=== PATIENT | male | born 1950 | race Caucasian/White ===

== ENCOUNTER 2017-01-30 13:42 | Inpatient (IN) | payer BC ==
[2017-01-30] MEDS ORDERED: Sodium Chloride 0.9% 1000 ML 1,000 ML IV STA (14:34)
[2017-01-30] MEDS ORDERED: Zofran 4 MG/2 ML VIAL IV ONE (14:37)
[2017-01-30] MEDS ORDERED: Zofran 4 MG/2 ML VIAL ONE (14:52)
[2017-01-30] MEDS ORDERED: Sodium Chloride 0.9% 1000 ML 1,000 ML ONE (14:52)
--- NOTE | 2017-01-30 14:52 | XRAY ---
Indication: Weakness and vomiting. Comparison: September 07, 2016. Portable chest again demonstrates normal heart and lungs with right-sided Port-A-Cath and hilar calcified nodes. Bony thorax intact.
[2017-01-30 15:29] LABS: ALBUMIN 2.7 g/dL (3.4-5.0); ALKALINE PHOSPHATASE 64 U/L (46-116); ANION GAP 10.4 MEQ/L (5-15); BILIRUBIN,TOTAL 2.4 mg/dL (0.2-1.0); BLOOD UREA NITROGEN 20 mg/dL (9-20); CHLORIDE 107 mEq/L (98-107); Carbon Dioxide 27.2 mEq/L (21-32); Glucose 126 MG/DL (70-110); Potassium 4.3 mEq/L (3.5-5.1); SGOT/AST 12 U/L (15-37); SGPT/ALT 30 U/L (12-78); SODIUM 140 mEq/L (136-145); Total Protein 4.9 gm/dL (6.4-8.2)
--- NOTE | 2017-01-30 15:39 | ERPHSYRPT ---
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 Triage Nursing Assessment: PT LETHARGIC RESP EASY NON LABORED PT AMBULATED FROM WHEELCHAIR WITH ASSISTANCE X 2 DRY MUCUS MEMBRANES NOTED. Timing/Duration: today Severity: moderate Modifying Factors: Improves With: eating Associated Symptoms: nausea, vomiting, No abdominal pain Allergies/Adverse Reactions: cefepime Allergy (Verified 01/30/17 14:34) morphine Allergy (Verified 01/21/15 08:10) Home Medications: Clonazepam 1 mg PO TIDPRN PRN 06/05/14 [History] Gabapentin [Neurontin] 300 mg PO 12/29/16 [History] Ondansetron HCl [Zofran] 4 mg PO 01/30/17 [History] Solifenacin Succinate [Vesicare] 5 mg PO 01/30/17 [History] Hx Tetanus, Diphtheria Vaccination/Date Given: No Hx Influenza Vaccination/Date Given: No Hx Pneumococcal Vaccination/Date Given: No Immunizations Up to Date: Yes - Review of Systems Constitutional: Weakness Eyes: No Symptoms Ears, Nose, & Throat: No Symptoms Respiratory: No Symptoms Cardiac: No Symptoms Abdominal/Gastrointestinal: Nausea, Vomiting Musculoskeletal: No Symptoms Skin: No Symptoms Psychological: No Symptoms Hematologic/Lymphatic: Other (Non-Hogdgkin's Lymphoma) - Past Medical History Pertinent Past Medical History: Yes Neurological History: No Pertinent History ENT History: No Pertinent History Cardiac History: No Pertinent History Respiratory History: No Pertinent History Endocrine Medical History: No Pertinent History Musculoskeletal History: No Pertinent History GI Medical History: No Pertinent History, Hernia History: No Pertinent History Psycho-Social History: No Pertinent History Male Reproductive Disorders: Other Other Medical History: states enlarged prostate - Past Surgical History Past Surgical History: Yes Neuro Surgical History: No Pertinent History Cardiac: No Pertinent History Respiratory: No Pertinent History Gastrointestinal: Appendectomy, Cholecystectomy, Hernia Repair Genitourinary: No Pertinent History Musculoskeletal: No Pertinent History Male Surgical History: No Pertinent History Other Surgical History: COLONOSCOPY - Social History Smoking Status: Never smoker Exposure to second hand smoke: Yes Drug Use: none Patient Lives Alone: No - Nursing Vital Signs Nursing Vital Signs: Initial Vital Signs Temperature 98.5 F Temperature Source Oral Pulse Rate 80 Respiratory Rate 18 Blood Pressure [Right Arm] 139/93 - Physical Exam General Appearance: moderate distress Eye Exam: eyes nml inspection, No scleral icterus Ears, Nose, Throat Exam: normal ENT inspection, dry mucous membranes Neck Exam: normal inspection, non-tender, supple, full range of motion Respiratory Exam: normal breath sounds, lungs clear Cardiovascular Exam: regular rate/rhythm, normal heart sounds, normal peripheral pulses Gastrointestinal/Abdomen Exam: soft, normal bowel sounds Extremity Exam: normal inspection, normal range of motion, pelvis stable Neurologic Exam: alert, oriented x 3, cooperative Skin Exam: normal color, warm, dry SpO2 Interpretation: normal SpO2: 99 Oxygen Delivery: Room Air - Course Nursing assessment & vital signs reviewed: Yes EKG Interpreted by Me: RATE, Sinus Rhythm (70), NORMAL AXIS, NORMAL INTERVALS, NORMAL QRS Ordered Tests: Active Orders 24 hr Category Date Time Status [employer] STAT Care 01/30/17 14:37 Active EKG-ER Only STAT Care 01/30/17 14:37 Active Pulse Oximetry (ED) STAT Care 01/30/17 14:37 Active CHEST 1 VIEW (PORTABLE) Stat Exams 01/30/17 14:34 Completed BLOOD CULTURE Stat Lab 01/30/17 15:06 Received CBC W DIFF Stat Lab 01/30/17 15:00 Completed CMP Stat Lab 01/30/17 15:00 Completed Lactic Acid Urgent Lab 01/30/17 14:50 Completed Manual Differential NC Stat Lab 01/30/17 15:00 Completed UA W/ MICROSCOPIC Stat Lab 01/30/17 15:40 Completed UA W/RFX UR CULTURE Stat Lab 01/30/17 15:40 Completed Medication Summary Discontinued Medications Generic Name Dose Route Start Last Admin Trade Name Freq PRN Reason Stop Dose Admin Heparin Sodium (Beef Lung) Confirm 01/30/17 13:55 Heparin Lock Flush 100 Units/Ml 5ml Syringe Administered 01/30/17 13:56 Dose 500 units .ROUTE .STK-MED ONE Sodium Chloride 1,000 mls @ 999 mls/hr 01/30/17 14:34 01/30/17 14:54 Sodium Chloride 0.9% 1000 Ml IV 01/30/17 15:34 999 mls/hr .Q1H1M STA Administration Sodium Chloride Confirm 01/30/17 14:52 Sodium Chloride 0.9% 1000 Ml Administered 01/30/17 14:53 Dose 1,000 mls @ ud .ROUTE .STK-MED ONE Ondansetron HCl 4 mg 01/30/17 14:37 01/30/17 14:54 Zofran 4 Mg/2 Ml Vial IV 01/30/17 14:38 4 mg STAT ONE Administration Ondansetron HCl Confirm 01/30/17 14:52 Zofran 4 Mg/2 Ml Vial Administered 01/30/17 14:53 Dose 4 mg .ROUTE .STK-MED ONE Lab/Rad Data: Laboratory Result Diagrams 01/30/17 15:00 01/30/17 15:00 Laboratory Results 01/30/17 01/30/17 01/30/17 Range/Units 15:40 15:00 15:00 WBC (4.0-10.5) K/mm3 RBC (4.1-5.6) M/mm3 Hgb (12.5-18.0) gm/dl Hct (42-50) % MCV (78-100) fl MCH (26-32) pg MCHC (32-36) g/dl RDW (11.5-14.0) % Plt Count (150-450) K/mm3 Sodium 140 (136-145) mEq/L Potassium 4.3 (3.5-5.1) mEq/L Chloride 107 (98-107) mEq/L Carbon Dioxide 27.2 (21-32) mEq/L Anion Gap 10.4 (5-15) MEQ/L BUN 20 (9-20) mg/dL Creatinine 0.91 (0.55-1.30) mg/dl Estimated GFR > 60 ML/MIN Glucose 126 H (70-110) MG/DL Lactic Acid (0.4-2.0) Calcium 7.9 L (8.5-10.1) mg/dL Total Bilirubin 2.4 H (0.2-1.0) mg/dL AST 12 L (15-37) U/L ALT 30 (12-78) U/L Alkaline Phosphatase 64 (46-116) U/L Serum Total Protein 4.9 L (6.4-8.2) gm/dL Albumin 2.7 L (3.4-5.0) g/dL Ur Collection Type CCMS Urine Color ELISHA (YELLOW) Urine Appearance CLEAR (CLEAR) Urine pH 7.5 (5-6) Ur Specific [place] 1.015 (1.005-1.025) Urine Protein 30 (Negative) Urine Glucose (UA) NEGATIVE (NEGATIVE) mg/dL Urine Ketones NEGATIVE (NEGATIVE) Urine Nitrite NEGATIVE (NEGATIVE) Urine Bilirubin SMALL (NEGATIVE) Urine Urobilinogen >=8.0 (0-1) mg/dL Urine WBC (Auto) NEGATIVE (NEGATIVE) Urine RBC (Auto) NEGATIVE (0-5) Pee/ul Urine Microscopic RBC 0-2 (0-2) /HPF Urine Microscopic WBC 0-2 (0-5) /HPF Urine Mucus SLIGHT (NEGATIVE) /HPF Influenza Type A Ag NEGATIVE (NEGATIVE) Influenza Type B Ag NEGATIVE (NEGATIVE) RSV (PCR) NEGATIVE (Negative) Specimen Received 01-30-17 1545 01/30/17 01/30/17 Range/Units 15:00 14:50 WBC 0.3 L* (4.0-10.5) K/mm3 RBC 2.75 L (4.1-5.6) M/mm3 Hgb 7.9 L (12.5-18.0) gm/dl Hct 23.4 L (42-50) % MCV 85.1 (78-100) fl MCH 28.7 (26-32) pg MCHC 33.8 (32-36) g/dl RDW 15.7 H (11.5-14.0) % Plt Count 7 L* (150-450) K/mm3 Sodium (136-145) mEq/L Potassium (3.5-5.1) mEq/L Chloride (98-107) mEq/L Carbon Dioxide (21-32) mEq/L Anion Gap (5-15) MEQ/L BUN (9-20) mg/dL Creatinine (0.55-1.30) mg/dl Estimated GFR ML/MIN Glucose (70-110) MG/DL Lactic Acid 1.1 (0.4-2.0) Calcium (8.5-10.1) mg/dL Total Bilirubin (0.2-1.0) mg/dL AST (15-37) U/L ALT (12-78) U/L Alkaline Phosphatase (46-116) U/L Serum Total Protein (6.4-8.2) gm/dL Albumin (3.4-5.0) g/dL Ur Collection Type Urine Color (YELLOW) Urine Appearance (CLEAR) Urine pH (5-6) Ur Specific [place] (1.005-1.025) Urine Protein (Negative) Urine Glucose (UA) (NEGATIVE) mg/dL Urine Ketones (NEGATIVE) Urine Nitrite (NEGATIVE) Urine Bilirubin (NEGATIVE) Urine Urobilinogen (0-1) mg/dL Urine WBC (Auto) (NEGATIVE) Urine RBC (Auto) (0-5) Pee/ul Urine Microscopic RBC (0-2) /HPF Urine Microscopic WBC (0-5) /HPF Urine Mucus (NEGATIVE) /HPF Influenza Type A Ag (NEGATIVE) Influenza Type B Ag (NEGATIVE) RSV (PCR) (Negative) Specimen Received - Progress Progress: improved Discussed with Dr.: Cuadra Other (Discussed with Dr. Roth/Oncologist with recs for 2 units PRBC and 1 unit single donor platelets. ) Counseled pt/family regarding: lab results, diagnosis, need for follow-up, rad results - Departure Time of Disposition: 16:45 Departure Disposition: Transfer Clinical Impression: Pancytopenia Vomiting Qualifiers: Vomiting type: unspecified Vomiting Intractability: unspecified Nausea presence : with nausea Qualified Code(s): R11.2 - Nausea with vomiting, unspecified Non-Hodgkin lymphoma Qualifiers: Non-Hodgkin lymphoma type: unspecified type Lymphoma site: unspecified region Qualified Code(s): C85.90 - Non-Hodgkin lymphoma, unspecified, unspecified site Condition: Serious Critical Care Time: Yes Critical Care Time(excluding separately billable procedures): 75-104 minutes Instructions: Vomiting -- Adult
[2017-01-30 15:41] LABS: Mean Cell Volume 85.1 fl (78-100); Mean Corpuscular Hemoglobin 28.7 pg (26-32); Red Blood Count 2.75 M/mm3 (4.1-5.6); Red Cell Distribution Width 15.7 % (11.5-14.0)
[2017-01-30 15:58] LABS: White Blood Count 0.3 K/mm3 (4.0-10.5)
[2017-01-30 15:59] LABS: Platelet Count 7 K/mm3 (150-450)
[2017-01-30 16:25] LABS: ADD URINE CULTURE? NO (NO); COMPLETE URINE MICROSCOPIC? YES; Collection Type CCMS
[2017-01-30 16:26] LABS: Mucus SLIGHT /HPF (NEGATIVE); Ph 7.5 (5-6); WBC 0-2 /HPF (0-5)
[2017-01-30 17:18] LABS: Eosinophil 1 % (0.00-3.0); Total Cells Counted 100
[2017-01-30 17:19] LABS: Platelet Estimate DECREASED (NORMAL)
[2017-01-30 17:21] LABS: ANISOCYTOSIS 1+
[2017-01-30] MEDS ORDERED: Hydromorphone 1 mg/ml Ampule IV PRN (18:29)
[2017-01-30] MEDS ORDERED: TYLENOL 325 MG PO PRN (18:29)
[2017-01-30] MEDS: Zofran 4 MG/2 ML VIAL IV PRN (19:55)
[2017-01-30] MEDS: Sodium Chloride 0.9% 1000 ML 1,000 ML IV SCH (20:01)
[2017-01-30] MEDS ORDERED: PHENERGAN 25 MG PO PRN (20:11)
[2017-01-30] MEDS ORDERED: KLONOPIN PO PRN (20:15)
[2017-01-30] MEDS ORDERED: NEURONTIN 300 MG PO SCH (22:00)
[2017-01-31] MEDS: Zofran 4 MG/2 ML VIAL IV PRN ×2 (03:37→12:35)
[2017-01-31] MEDS ORDERED: DILAUDID 2 MG INJECTION IV PRN (06:56)
[2017-01-31] MEDS: Sodium Chloride 0.9% 1000 ML 1,000 ML IV SCH (07:12)
[2017-01-31 07:16] LABS: Mean Cell Volume 84.4 fl (78-100); Mean Platelet Volume 9.5 fl (6-9.5); Red Blood Count 2.94 M/mm3 (4.1-5.6); Red Cell Distribution Width 14.9 % (11.5-14.0)
[2017-01-31 07:25] LABS: Mean Corpuscular Hemoglobin 28.5 pg (26-32); Platelet Count 20 K/mm3 (150-450); White Blood Count 0.3 K/mm3 (4.0-10.5)
--- NOTE | 2017-01-31 07:54 | PCM.HP ---
History of Present Illness - Chief Complaint Chief Complaint: Pancytopenia, H/O non-hodgkins lymphoma History of Present Illness: is a 66 year old male with a history of non-Hodgkin's lymphoma who has no local physician. he was scheduled for an initial consult in my office today, apparently he was hospitalized in [facility] for a prolonged period before he was transferred to [facility]. He apparently is in the process of workup for bone marrow transplant. He developed vomiting yesterday and was unable to keep anything down all day. He felt weak and was thought to be dehydrated, apparently home health was unable to draw his labs so he was brought to ER. He has had 1 episode of vomiting overnight, has not had anything to eat or drink. - Review of Systems Constitutional: No Fever, No Chills Cardiac: No Chest Pain, No Edema, No Syncope Abdominal/Gastrointestinal: Nausea, Vomiting Genitourinary Symptoms: No Dysuria Skin: No Rash All Other Systems: Reviewed and Negative Medications & Allergies Home Medications: Home Medication List Clonazepam 1 mg PO TIDPRN PRN 06/05/14 [History Confirmed 01/30/17] Gabapentin [Neurontin] 900 mg PO DAILY 12/29/16 [History Confirmed 01/30/17] Lubiprostone [Amitiza] 24 mcg PO DAILY PRN PRN 01/30/17 [History Confirmed 01/30] Ondansetron HCl [Zofran] 4 mg PO Q4HPRN PRN 01/30/17 [History Confirmed 01/30/17 ] Oxycodone HCl 5 mg PO Q4H PRN PRN 01/30/17 [History Confirmed 01/30/17] Prochlorperazine Maleate 10 mg PO DAILY 01/30/17 [History Confirmed 01/30/17] Promethazine HCl 25 mg PO Q6HPRN PRN 01/30/17 [History Confirmed 01/30/17] Solifenacin Succinate [Vesicare] 5 mg PO DAILY 01/30/17 [History Confirmed 01/30] Allergies/Adverse Reactions: Allergies Allergy/AdvReac Type Severity Reaction Status Date / Time cefepime Allergy Verified 01/30/17 14:34 morphine Allergy Verified 01/21/15 08:10 - Past Medical History Past Medical History: Yes Neurological History: No Pertinent History ENT History: No Pertinent History Cardiac History: No Pertinent History Respiratory History: No Pertinent History Endocrine Medical History: No Pertinent History Musculoskelatal History: No Pertinent History GI Medical History: No Pertinent History, Hernia History: No Pertinent History Pyscho-Social History: No Pertinent History Male Reproductive Disorders: Other Comment: states enlarged prostate - Past Surgical History Past Surgical History: Yes Neuro Surgical History: No Pertinent History Cardiac History: No Pertinent History Respiratory Surgery: No Pertinent History GI Surgical History: Appendectomy, Cholecystectomy, Hernia Repair Genitourinary Surgical Hx: No Pertinent History Musculskeletal Surgical Hx: No Pertinent History, Other Male Surgical History: No Pertinent History Other Surgical History: COLONOSCOPY, 2 ports. 2 pins in left arm - Social History Smoking Status: Never smoker Exposure to second hand smoke: Yes Alcohol: None Drug Use: none - Physical Exam Vital Signs: Vital Signs - 24 hr Temp Pulse Resp BP BP Pulse Ox 01/31/17 04:00 98.7 F 76 18 148/94 100 01/30/17 23:00 99.6 F 77 119/79 01/30/17 19:25 98 01/30/17 18:58 99.1 F 90 20 128/83 100 01/30/17 17:20 99 01/30/17 16:19 80 18 139/93 100 01/30/17 15:32 69 16 119/74 99 01/30/17 15:31 100 01/30/17 13:53 98.5 F 79 18 127/82 100 General Appearance: no apparent distress, alert Respiratory Exam: normal breath sounds, lungs clear, No respiratory distress Cardiovascular Exam: regular rate/rhythm, normal heart sounds, normal peripheral pulses Gastrointestinal/Abdomen Exam: soft, normal bowel sounds, No tenderness, No mass Extremity Exam: normal inspection, normal range of motion, pelvis stable Results - Labs Lab/Micro Results: Lab Results-Last 24 Hours 01/30/17 01/30/17 01/31/17 Range/Units 19:00 20:00 07:00 WBC 0.3 L* (4.0-10.5) K/mm3 RBC 2.94 L (4.1-5.6) M/mm3 Hgb 8.4 L (12.5-18.0) gm/dl Hct 24.8 L (42-50) % MCV 84.4 (78-100) fl MCH 28.5 (26-32) pg MCHC 33.9 (32-36) g/dl RDW 14.9 H (11.5-14.0) % Plt Count 20 L* (150-450) K/mm3 MPV 9.5 (6-9.5) fl ABO Group A Rh Factor POSITIVE Antibody Screen NEGATIVE (NEGATIVE) Crossmatch COMPATIBLE COMPATIBLE (COMPATIBLE) Assessment/Plan (1) Non-Hodgkin lymphoma Current Visit: Yes Status: Acute Qualifiers: Non-Hodgkin lymphoma type: unspecified type Lymphoma site: unspecified region Qualified Code(s): C85.90 - Non-Hodgkin lymphoma, unspecified, unspecified site Code(s): C85.90 - NON-HODGKIN LYMPHOMA, UNSPECIFIED, UNSPECIFIED SITE (2) Pancytopenia Current Visit: Yes Status: Acute Assessment & Plan: 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 Code(s): D61.818 - OTHER PANCYTOPENIA (3) Vomiting Current Visit: Yes Status: Acute Qualifiers: Vomiting type: unspecified Vomiting Intractability: unspecified Nausea presence: with nausea Qualified Code(s): R11.2 - Nausea with vomiting, unspecified Assessment & Plan: continue hydration, zofran prn. attempt diet today. Code(s): R11.10 - VOMITING, UNSPECIFIED
[2017-01-31] MEDS ORDERED: Compazine 5 MG PO PRN (08:25)
[2017-01-31] MEDS ORDERED: AMITIZA PO PRN (09:28)
[2017-01-31] MEDS ORDERED: Oxy-IR 5 MG PO PRN (09:32)
[2017-01-31] MEDS ORDERED: Ditropan 5 MG PO SCH (10:00)
[2017-01-31] MEDS ORDERED: NEURONTIN 300 MG PO SCH (10:00)
[2017-01-31 12:42] VITALS: PULSE 82
[2017-01-31 16:32] VITALS: BP 123/85; O2SAT 82
== END 2017-01-31 17:42 | disposition home or self-care (01) | DRG 841 ==
LOC: ED 13:42 → OBSVTOIN 18:23 → MED SURG 18:23
PROVIDERS: ADMIT Family Medicine; ATTEND Family Medicine
DX: C85.90 Non-Hodgkin lymphoma, unspecified, unspecified site (principal); D61.818 Other pancytopenia; R11.2 Nausea with vomiting, unspecified; Z79.899 Other long term (current) drug therapy; N40.0 Benign prostatic hyperplasia without lower urinary tract symptoms
CPT/HCPCS: 36415; 36430; 71010; 80053; 81000; 83605; 85025; 85027; 86850; 86900; 86901; 86922; 87040; 87631; 93005; 93041; 94760; 96360; 96374; 99285; J1642; J2405; P9016; P9034; A9270-GY

== ENCOUNTER 2017-02-02 16:28 | Observation (INO) | payer BC ==
[2017-02-02] MEDS ORDERED: Sodium Chloride 0.9% 500 ML 500 ML IV SCH (17:30)
[2017-02-02] MEDS ORDERED: AMITIZA PO PRN (18:34)
[2017-02-02] MEDS ORDERED: ZOFRAN ODT 4 MG PO PRN (18:34)
[2017-02-02] MEDS ORDERED: PHENERGAN 25 MG PO PRN (18:34)
[2017-02-02] MEDS ORDERED: Zofran 4 MG/2 ML VIAL IV PRN (18:36)
[2017-02-02] MEDS ORDERED: Hydromorphone 1 mg/ml Ampule IV PRN (18:37)
[2017-02-02] MEDS ORDERED: DILAUDID 2 MG INJECTION IV PRN (18:45)
[2017-02-02] MEDS: Oxy-IR 5 MG PO PRN ×2 (18:48→23:21)
[2017-02-02] MEDS ORDERED: Phenergan 25 MG INJ IV PRN (20:13)
[2017-02-02] MEDS ORDERED: NEURONTIN 300 MG PO SCH (22:00)
[2017-02-02] MEDS: Ditropan 5 MG PO SCH (22:32)
[2017-02-02] MEDS: BENADRYL 50 MG/ML IV PRN (22:55)
[2017-02-02] MEDS: TYLENOL 325 MG PO PRN (22:55)
[2017-02-03] MEDS: Oxy-IR 5 MG PO PRN ×2 (03:34→07:47)
[2017-02-03] MEDS: TYLENOL 325 MG PO PRN (03:35)
[2017-02-03] MEDS: BENADRYL 50 MG/ML IV PRN (03:36)
--- NOTE | 2017-02-03 07:14 | PCM.HP ---
History of Present Illness - Chief Complaint Chief Complaint: throbocytopenia, nohodkpam lymphona Date: 02/03/17 History of Present Illness: is a 66 year old male. follows with Dr. Jaime had prolonged hospitalization at [facility] and just discharged for his lymphoma and his pancytopenia. Has home blood draws through oncology and had severe thrombocytopenia and was recommended admission by his oncologist for infusion which was completed overnight. he has history of fever and chills with transfusion and this am after completion of the last unit of prbc did have fever. he currently has no new complaints is weak and nauseated which is his normal. No difficulty breathing no new rash or skin lesion no difficulty urinating no change in urine color. - Review of Systems Constitutional: Fever, Chills, Fatigue Eyes: No Symptoms Ears, Nose, & Throat: No Symptoms Respiratory: No Cough, No Short Of Breath Cardiac: Edema, No Chest Pain, No Syncope Abdominal/Gastrointestinal: Nausea, No Abdominal Pain, No Vomiting, No Diarrhea Genitourinary Symptoms: No Dysuria Musculoskeletal: No Back Pain, No Neck Pain Skin: No Rash Neurological: No Dizziness, No Focal Weakness, No Sensory Changes Psychological: No Symptoms Endocrine: No Symptoms Hematologic/Lymphatic: No Symptoms Immunological/Allergic: No Symptoms Medications & Allergies Home Medications: Home Medication List Clonazepam 1 mg PO TIDPRN PRN 06/05/14 [History Confirmed 02/02/17] Gabapentin [Neurontin] 900 mg PO HS 12/29/16 [History Confirmed 02/02/17] Lubiprostone [Amitiza] 24 mcg PO DAILY PRN PRN 01/30/17 [History Confirmed 02/02] Ondansetron HCl [Zofran] 4 mg PO Q4HPRN PRN 01/30/17 [History Confirmed 02/02/17 ] Oxycodone HCl 5 mg PO Q4H PRN PRN 01/30/17 [History Confirmed 02/02/17] Prochlorperazine Maleate 10 mg PO DAILY 01/30/17 [History Confirmed 02/02/17] Promethazine HCl 25 mg PO Q6HPRN PRN 01/30/17 [History Confirmed 02/02/17] Solifenacin Succinate [Vesicare] 5 mg PO DAILY 01/30/17 [History Confirmed 02/02] Allergies/Adverse Reactions: Allergies Allergy/AdvReac Type Severity Reaction Status Date / Time cefepime Allergy Verified 01/30/17 14:34 morphine Allergy Verified 01/21/15 08:10 - Past Medical History Past Medical History: Yes Neurological History: No Pertinent History ENT History: No Pertinent History Cardiac History: No Pertinent History Respiratory History: No Pertinent History Endocrine Medical History: No Pertinent History Musculoskelatal History: No Pertinent History GI Medical History: No Pertinent History, Hernia History: No Pertinent History Pyscho-Social History: No Pertinent History Male Reproductive Disorders: Other Comment: states enlarged prostate - Past Surgical History Past Surgical History: Yes Neuro Surgical History: No Pertinent History Cardiac History: No Pertinent History Respiratory Surgery: No Pertinent History GI Surgical History: Appendectomy, Cholecystectomy, Hernia Repair Genitourinary Surgical Hx: No Pertinent History Musculskeletal Surgical Hx: No Pertinent History, Other Male Surgical History: No Pertinent History Other Surgical History: COLONOSCOPY, 2 ports. 2 pins in left arm - Social History Smoking Status: Never smoker Exposure to second hand smoke: Yes Alcohol: None Drug Use: none - Physical Exam Vital Signs: Vital Signs - 24 hr Temp Pulse Resp BP Pulse Ox 02/03/17 04:00 97.6 F 88 18 138/80 98 02/03/17 00:00 98.6 F 76 18 109/77 98 02/02/17 20:00 98.3 F 93 H 20 126/79 98 02/02/17 18:05 98.1 F 88 18 118/77 98 General Appearance: no apparent distress, alert Neurologic Exam: alert, oriented x 3, cooperative, normal mood/affect, nml cerebellar function, nml station & gait, sensation nml, No motor deficits Eye Exam: PERRL/EOMI, pale conjunctivae Ears, Nose, Throat Exam: normal ENT inspection, pharynx normal, moist mucous membranes, other (hoarse voice chronic) Neck Exam: normal inspection, non-tender, supple, full range of motion Respiratory Exam: normal breath sounds, lungs clear, No respiratory distress Cardiovascular Exam: regular rate/rhythm, normal heart sounds, normal peripheral pulses Gastrointestinal/Abdomen Exam: soft, normal bowel sounds, No tenderness, No mass Back Exam: normal inspection, normal range of motion, No CVA tenderness, No vertebral tenderness Extremity Exam: normal inspection, normal range of motion, pelvis stable, pedal edema (trace jayden) Skin Exam: normal color, warm, dry, pale, No rash Lymphatic Exam: No adenopathy Results - Labs Lab/Micro Results: Lab Results-Last 24 Hours 02/02/17 02/02/17 02/02/17 Range/Units 18:10 18:10 18:10 ABO Group A Rh Factor POSITIVE Antibody Screen NEGATIVE (NEGATIVE) Crossmatch COMPATIBLE COMPATIBLE (COMPATIBLE) Assessment/Plan (1) Pancytopenia Current Visit: Yes Status: Acute Assessment & Plan: was admitted and for severe thrombocytopenia and anemia under recommendation of his oncologist for transfusion of 2 bags plts and 2 U PRBC has completed. awaiting post transfusion labs severe decreased leukocytes on reverse isolation for this. Code(s): D61.818 - OTHER PANCYTOPENIA (2) Non-Hodgkin lymphoma Current Visit: Yes Status: Chronic Code(s): C85.90 - NON-HODGKIN LYMPHOMA, UNSPECIFIED, UNSPECIFIED SITE (3) Febrile nonhemolytic transfusion reaction Current Visit: Yes Status: Acute Assessment & Plan: mild chills had fever to 101 after last bag of blood transfusion reaction labs and paperwork are being completed ua pending monitor for any signs or symptoms of hemolysis no breathing issues. Code(s): R50.84 - FEBRILE NONHEMOLYTIC TRANSFUSION REACTION (4) Nausea Current Visit: Yes Status: Acute Code(s): R11.0 - NAUSEA
[2017-02-03] MEDS ORDERED: Transderm Scop 1.5MG Patch TOP ONE (07:15)
[2017-02-03 07:38] VITALS: O2SAT 96
[2017-02-03] MEDS ORDERED: Klonopin 0.5 MG PO PRN (07:45)
[2017-02-03] MEDS: Ditropan 5 MG PO SCH ×2 (07:48→10:28)
[2017-02-03 08:28] LABS: Mean Cell Volume 84.6 fl (78-100); Mean Platelet Volume 10.5 fl (6-9.5); Platelet Count 36 K/mm3 (150-450); Red Blood Count 3.06 M/mm3 (4.1-5.6); Red Cell Distribution Width 14.4 % (11.5-14.0)
[2017-02-03] MEDS ORDERED: Sodium Chloride 0.9% 1000 ML 1,000 ML IV SCH (08:30)
[2017-02-03 08:38] LABS: Mean Corpuscular Hemoglobin 28.7 pg (26-32); White Blood Count 0.3 K/mm3 (4.0-10.5)
[2017-02-03] MEDS ORDERED: Compazine 5 MG PO SCH (10:00)
--- NOTE | 2017-02-03 11:27 | PCM.DCORD ---
- Discharge Discharge Date: 02/03/17 Disposition: Home, Self-Care Condition: Stable Prescriptions: New Scopolamine 1.5 mg Patch [Transderm Scop 1.5MG Patch] 1.5 mg TD Q3D PRN #10 patch PRN Reason: Nausea Continue Clonazepam 1 mg PO TIDPRN PRN PRN Reason: Anxiety Gabapentin [Neurontin] 900 mg PO HS Solifenacin Succinate [Vesicare] 5 mg PO DAILY Ondansetron HCl [Zofran] 4 mg PO Q4HPRN PRN PRN Reason: Vomiting Promethazine HCl 25 mg PO Q6HPRN PRN PRN Reason: Vomiting Prochlorperazine Maleate 10 mg PO DAILY Oxycodone HCl 5 mg PO Q4H PRN PRN PRN Reason: Pain Lubiprostone [Amitiza] 24 mcg PO DAILY PRN PRN PRN Reason: Constipation Additional Instructions: Resume home health and repeat labs per oncology orders Follow up with: ANDREW ALVA [COURTESY STAFF] - 1 Week
[2017-02-03 12:46] VITALS: BP 133/81; PULSE 67
[2017-02-03] MEDS ORDERED: solu-MEDROL 125 MG IV ONE (12:47)
[2017-02-03 13:29] LABS: ANION GAP 12.9 MEQ/L (5-15); BLOOD UREA NITROGEN 29 mg/dL (9-20); CHLORIDE 104 mEq/L (98-107); Carbon Dioxide 26.1 mEq/L (21-32); Glucose 130 MG/DL (70-110); SODIUM 139 mEq/L (136-145)
== END 2017-02-03 14:30 | disposition home or self-care (01) ==
LOC: MED SURG 17:32
PROVIDERS: ADMIT Family Medicine; ATTEND Family Medicine
DX: D61.818 Other pancytopenia (principal); C85.90 Non-Hodgkin lymphoma, unspecified, unspecified site; R50.84 Febrile nonhemolytic transfusion reaction; R11.0 Nausea; Z79.899 Other long term (current) drug therapy
CPT/HCPCS: 36415; 36430; 80048; 83010; 85027; 86078; 86850; 86900; 86901; 86922; G0378; J1200; J1642; J2405; J2930; P9016; P9034; A9270-GY